=== PATIENT | male | born 1945 | race Caucasian/White ===

== ENCOUNTER 2017-12-08 15:48 | Emergency (ER) | payer OTHER ==
[2017-12-08 16:49] VITALS: BP 153/86
[2017-12-08] MEDS ORDERED: Lidocaine 1% 20 ML MDV INJECT ONE (17:57)
[2017-12-08] MEDS ORDERED: Lidocaine 1% 20 ML MDV ONE (17:58)
[2017-12-08] MEDS ORDERED: Bacitracin Oint 1 GM U/D Packet TOP ONE (18:34)
--- NOTE | 2017-12-08 18:38 | EDM.PDOC ---
ED HPI GENERAL MEDICAL PROBLEM - General Chief Complaint: Laceration Stated Complaint: LEFT THUMB Time Seen by Provider: 12/08/17 16:46 Source of Information: Reports: Patient History Limitations: Reports: No Limitations - History of Present Illness INITIAL COMMENTS - FREE TEXT/NARRATIVE: This gentleman was at home doing some woodworking when somehow he managed to stick his left thumb into the table saw. This happened just shortly well prior to arrival. He said he was a lot of bleeding and he has trouble controlling the bleeding. There were no other injuries Left 1-Thumb Pain Score (Numeric/FACES): 8 - Related Data Allergies Allergy/AdvReac Type Severity Reaction Status Date / Time No Known Allergies Allergy Verified 12/08/17 17:09 Home Meds: Home Meds Insulin Glarg,Human.Rec.Analog [Lantus Solostar] 68 units SQ BEDTIME 12/08/17 [ History] Lisinopril 10 mg PO DAILY 12/08/17 [History] metFORMIN [Glucophage XR] 500 mg PO BIDMEALS 12/08/17 [History] Past Medical History HEENT History: Reports: Cataract, Hard of Hearing, Impaired Vision Cardiovascular History: Reports: High Cholesterol, Hypertension, [place] Musculoskeletal History: Reports: Fracture, Osteoarthritis Other Musculoskeletal History: fx clavicle foot fx Neurological History: Reports: Concussion Psychiatric History: Reports: Depression Endocrine/Metabolic History: Reports: Diabetes, Type II, IDDM, Obesity/BMI 30+ Hematologic History: Reports: Blood Transfusion(s) Dermatologic History: Reports: Other (See Below) Other Dermatologic History: Skin issue from agent orange - Infectious Disease History Infectious Disease History: Reports: Chicken Pox, Measles, Mumps, Shingles - Past Surgical History Cardiovascular Surgical History: Reports: Coronary Artery Stent GI Surgical History: Reports: Colonoscopy Social & Family History - Tobacco Use Smoking Status *Q: Never Smoker - Recreational Drug Use Recreational Drug Use: No ED ROS GENERAL - Review of Systems Review Of Systems: ROS reveals no pertinent complaints other than HPI. ED EXAM, SKIN/RASH Exam: See Below Exam Limited By: No Limitations General Appearance: Alert, WD/WN Extremities: Other (There is a large irregular laceration to the pad of the left thumb it goes sort of diagonally across the thumb and there appears to be some tissue missing. There is no visible bone. He is able to move the DIP joint normally.) Course - Vital Signs Last Recorded V/S: Last Vital Signs Temp 35.0 C L 12/08/17 17:07 Pulse 93 12/08/17 17:07 Resp 16 12/08/17 17:07 BP 153/86 H 12/08/17 17:07 Pulse Ox 93 L 12/08/17 17:07 - Orders/Labs/Meds Meds: Medications Discontinued Medications Generic Name Dose Route Start Last Admin Trade Name Chance PRN Reason Stop Dose Admin Lidocaine HCl 20 ml 12/08/17 17:57 Xylocaine 1% INJECT 12/08/17 17:58 ONETIME ONE Lidocaine HCl Confirm 12/08/17 17:58 12/08/17 18:11 Xylocaine 1% Administered 12/08/17 17:59 Not Given Dose 20 ml .ROUTE .STK-MED ONE - Re-Assessments/Exams Free Text/Narrative Re-Assessment/Exam: 12/08/17 18:37 Dr. Otero was called and he has come to the emergency department to repair the wound patient will follow-up with him rechecking to see if the patient is up -to-date on tetanus or not Departure - Departure Time of Disposition: 18:37 Disposition: Home, Self-Care 01 Condition: Fair Clinical Impression: Thumb laceration - Discharge Information Referrals: PCP,None [Primary Care Provider] - Additional Instructions: See the wound care instructions and follow-up plans as per Dr. Otero
--- NOTE | 2017-12-11 12:37 | OR ---
DATE OF PROCEDURE: 12/08/2017 PROCEDURE: Complex repair of thumb laceration/traumatic injury. PREOPERATIVE DIAGNOSIS: Significant degloving-type traumatic injury to left thumb due to table saw injury. POSTOPERATIVE DIAGNOSIS: Significant degloving-type traumatic injury to left thumb due to table saw injury. COMPLICATION: None. VENDING MECHANIC: None. ANESTHESIA: Lidocaine 1% without epinephrine mixed with Marcaine. INDICATION: This is a pleasant 72-year-old gentleman who placed his left thumb inadvertently in a table saw resulting in a significant injury. RISKS: Risks, benefits, alternatives, and limitations including, but not limited to, infection, bleeding, injury to structures requiring revisional surgery, scar formation, the possibility of infection including sepsis, possibility of skin grafting or other revisional surgery at a later date. FINDINGS: Significant tissue loss with respect to the Kerf area of the blade. PROCEDURE IN DETAIL: The patient was placed in the supine position. The left thumb was prepped and draped with Betadine. On exam, there did not appear to be any bone injury. I just saw a tear. The wound was thoroughly irrigated. The laceration almost circumnavigated the entire thumb. This was in the area around the distal phalangeal joint. The muscular tissues were then reapproximated with 3-0 and 4-0 Vicryl reapproximating the "pulp" of the thumb itself. Once these layers were reapproximated, the subcutaneous tissues were then also reapproximated with multiple layers of 4-0 Vicryl suture. Further subcutaneous tissues were then reapproximated on the shorter arm of the stellate- type injury also using 3-0 and 4-0 Vicryl combinations. The skin was then reapproximated first at the stellate point with a combination of 3-0 and 4- 0 Prolene sutures. There was significant loss of the tissue thus preventing actual connectivity to the skin, just rather an approximation. This was then sutured in a combination of running and interrupted sutures. Bacitracin and dressings were applied. The patient tolerated the procedure well. He is to return to clinic next week. Of note, the patient was instructed on signs, symptoms, and complications including, but not limited to, infection and bleeding. He is to return to the emergency room if any of the occur. The patient tolerated the procedure well. Otto Otero MD /[id number]
== END 2017-12-08 19:03 | disposition home or self-care (01) ==
LOC: JP.ED 15:48
DX: S61.012A Laceration without foreign body of left thumb without damage to nail, initial encounter (principal); I10 Essential (primary) hypertension; E11.9 Type 2 diabetes mellitus without complications; Z79.4 Long term (current) use of insulin; W27.0XXA Contact with workbench tool, initial encounter
CPT/HCPCS: 99283

== ENCOUNTER 2020-06-09 15:47 | Emergency (ER) | payer OTHER ==
[2020-06-09] MEDS ORDERED: Magnesium Hydroxide 400 MG/5 ML Susp 30 ML Cup PO ONE (16:18)
[2020-06-09] MEDS ORDERED: Aluminum Hydroxide/Magnesium Hydroxide/Simethicone Susp 30 ML Cup PO ONE (16:40)
--- NOTE | 2020-06-09 16:48 | EDM.PDOC ---
ED HPI GENERAL MEDICAL PROBLEM - General Chief Complaint: Chest Pain Stated Complaint: CHEST PAINS Time Seen by Provider: 06/09/20 16:10 Source of Information: Reports: Patient History Limitations: Reports: No Limitations - History of Present Illness INITIAL COMMENTS - FREE TEXT/NARRATIVE: 74-year-old male with intermittent chest burning over the past several days, unsure if it is indigestion or some other problem. He has a remote history of a stent placement over 20 years ago. Symptoms are not related to activity, do not cause any other symptoms such as shortness of breath or diaphoresis. No nausea or vomiting. Symptoms are substernal, mild burning sensation, but he has not taken any antacids or other treatment. [facility]. On arrival he had a slight burning sensation substernal without radiation, no shortness of breath or other symptoms. No fevers or chills, denies cough. Onset: Gradual Duration: Day(s): (2 to 3 days of symptoms) Location: Reports: Chest (Substernal) Quality: Reports: Burning (Mild burning sensation) Improves with: Reports: None Worsens with: Reports: None Associated Symptoms: Reports: No Other Symptoms Chest Pain Score (Numeric/FACES): 5 - Related Data Allergies Allergy/AdvReac Type Severity Reaction Status Date / Time No Known Allergies Allergy Verified 06/09/20 16:03 Home Meds: Home Meds Insulin Glarg,Human.Rec.Analog [Lantus Solostar] 75 units SQ BEDTIME 12/08/17 [History] metFORMIN [Glucophage XR] 1,000 mg PO BIDMEALS 12/08/17 [History] Gabapentin [Neurontin] 300 mg PO BEDTIME 06/09/20 [History] Omeprazole 40 mg PO DAILY 06/09/20 [History] Valsartan 160 mg PO DAILY 06/09/20 [History] atenoloL [Atenolol] 100 mg PO DAILY 06/09/20 [History] atorvaSTATin Calcium [Atorvastatin Calcium] 40 mg PO BEDTIME 06/09/20 [History] glipiZIDE [Glucotrol] 20 mg PO BID 06/09/20 [History] hydroCHLOROthiazide [Hydrochlorothiazide] 25 mg PO DAILY 06/09/20 [History] Past Medical History HEENT History: Reports: Cataract, Hard of Hearing, Impaired Vision Cardiovascular History: Reports: High Cholesterol, Hypertension, [place] Respiratory History: Reports: None Musculoskeletal History: Reports: Fracture, Osteoarthritis Other Musculoskeletal History: fx clavicle foot fx Neurological History: Reports: Concussion Psychiatric History: Reports: Depression Endocrine/Metabolic History: Reports: Diabetes, Type II, IDDM, Obesity/BMI 30+ Hematologic History: Reports: Blood Transfusion(s) Dermatologic History: Reports: Other (See Below) Other Dermatologic History: Skin issue from agent orange - Infectious Disease History Infectious Disease History: Reports: Chicken Pox, Measles, Mumps, Shingles - Past Surgical History HEENT Surgical History: Reports: Cataract Surgery Cardiovascular Surgical History: Reports: Coronary Artery Stent GI Surgical History: Reports: Colonoscopy Other GI Surgeries/Procedures: Abdomenal surgery to remove schrapnel Social & Family History - Tobacco Use Tobacco Use Status *Q: Former Tobacco User Used Tobacco, but Quit: Yes Month/Year Tobacco Last Used: 15 years ago - Caffeine Use Caffeine Use: Reports: Coffee - Recreational Drug Use Recreational Drug Use: No ED ROS GENERAL - Review of Systems Review Of Systems: See Below Constitutional: Denies: Fever, Chills HEENT: Reports: No Symptoms Respiratory: Denies: Shortness of Breath, Cough Cardiovascular: Reports: Chest Pain, Edema (Patient has chronic and recurring lower extremity edema, especially on the left side. He is interested in getting some as needed diuretics). Denies: Palpitations Endocrine: Denies: Fatigue GI/Abdominal: Denies: Abdominal Pain, Nausea, Vomiting Musculoskeletal: Reports: Back Pain, Other (Chronic knee pain) Skin: Reports: No Symptoms Neurological: Reports: No Symptoms Psychiatric: Reports: No Symptoms Free Text/Narrative/Comment: Admits to weight gain over the past few months. 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 ED EXAM, GENERAL - Physical Exam Exam: See Below Exam Limited By: No Limitations General Appearance: Alert, No Apparent Distress Head: Atraumatic Respiratory/Chest: No Respiratory Distress, Lungs Clear Cardiovascular: Regular Rate, Rhythm. No: Extra Beats GI/Abdominal: Soft, Non-Tender Extremities: Pedal Edema (1+ pitting edema left lower extremity, trace on the right. This is a chronic and recurring problem) Neurological: Alert, Oriented Psychiatric: Normal Affect, Normal Mood Skin Exam: Warm, Dry #1 Interpretation EKG Date: 06/09/20 Rhythm: NSR Course - Vital Signs Last Recorded V/S: Last Vital Signs Temp 97.5 F 06/09/20 15:59 Pulse 63 06/09/20 18:11 Resp 14 06/09/20 18:11 BP 130/65 06/09/20 18:11 Pulse Ox 94 L 06/09/20 18:11 - Orders/Labs/Meds Orders: Active Orders 24 hr Category Date Time Status CORONAVIRUS COVID-19, DEBBI Stat Lab 06/09/20 17:53 Received EKG 12 Lead [EK] Routine Ther 06/09/20 16:18 Ordered Labs: Laboratory Tests 06/09/20 06/09/20 Range/Units 16:30 16:30 WBC 6.3 (4.5-11.0) K/uL RBC 4.77 (4.30-5.90) M/uL Hgb 14.4 (12.0-15.0) g/dL Hct 42.5 (40.0-54.0) % MCV 89 (80-98) fL MCH 30 (27-31) pg MCHC 34 (32-36) % Plt Count 198 (150-400) K/uL Neut % (Auto) 46 (36-66) % Lymph % (Auto) 38 (24-44) % Stanley % (Auto) 15 H (2-6) % Eos % (Auto) 2 (2-4) % Baso % (Auto) 1 (0-1) % Sodium 140 (140-148) mmol/L Potassium 4.3 (3.6-5.2) mmol/L Chloride 103 (100-108) mmol/L Carbon Dioxide 27 (21-32) mmol/L Anion Gap 9.9 (5.0-14.0) mmol/L BUN 27 H (7-18) mg/dL Creatinine 1.3 (0.8-1.3) mg/dL Est Cr Clr Drug Dosing 51.36 mL/min Estimated GFR (MDRD) 54 L (>60) Glucose 71 L (74-106) mg/dL Calcium 9.3 (8.5-10.1) mg/dL Troponin I < 0.017 (0.000-0.056) ng/mL Meds: Medications Discontinued Medications Generic Name Dose Route Start Last Admin Trade Name Freq PRN Reason Stop Dose Admin Al Hydroxide/Mg Hydroxide 30 ml 06/09/20 16:40 06/09/20 16:50 Mag-Al Plus PO 06/09/20 16:41 30 ml ONETIME ONE Administration - Re-Assessments/Exams Free Text/Narrative Re-Assessment/Exam: 06/09/20 17:55 Initial EKG was normal. He had already taken aspirin at home. CBC, BMP, troponin were obtained and patient was given 30 cc of Maalox. Symptoms resolved almost immediately after the Maalox. He was kept on cardiac monitoring until labs returned. Troponin was 0, he also was given a coronavirus test which will be back in 48 hours. 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 I encouraged him to go back up to 40 mg of omeprazole daily, gave him 30 20 mg Lasix to use as needed and he will return in the next 2 to 3 days if not improving satisfactorily or sooner if worsening. If he develops chest pain or burning persistently with activity he needs to return right away. I also recommended a stress test in the near future, he will contact the [facility] to set this up. CBC was normal, BMP was reassuring with normal kidney function and electrolytes. Glucose was 71. Departure - Departure Time of Disposition: 19:13 Disposition: Home, Self-Care 01 Clinical Impression: Atypical chest pain, Peripheral edema Acid reflux Qualifiers: Esophagitis presence: esophagitis presence not specified Qualified Code(s): K21.9 - Gastro-esophageal reflux disease without esophagitis - Discharge Information Instructions: Heartburn, [id number] Referrals: PCP,None [Primary Care Provider] - Forms: ED Department Discharge Care Plan Goals: Increase your omeprazole back to 2 pills daily for the next 7 to 10 days, and use 1 pill of diuretic in the morning as needed for peripheral edema. Return if chest pain recurs and is persistent, or is related to increase activity. [facility] near future to set up stress testing before any further surgeries. Sepsis Event Note (ED) - Evaluation Sepsis Screening Result: No Definite Risk - My Orders Last 24 Hours: My Active Orders 06/09/20 16:18 EKG 12 Lead [EK] Routine 06/09/20 17:53 CORONAVIRUS COVID-19, DEBBI Stat - Assessment/Plan Last 24 Hours: My Active Orders 06/09/20 16:18 EKG 12 Lead [EK] Routine 06/09/20 17:53 CORONAVIRUS COVID-19, DEBBI Stat
[2020-06-09 18:11] VITALS: BP 130/65; PULSE 63
== END 2020-06-09 19:13 | disposition home or self-care (01) ==
LOC: JP.ED 15:47
DX: K21.9 Gastro-esophageal reflux disease without esophagitis (principal); R60.0 Localized edema; I10 Essential (primary) hypertension; E78.00 Pure hypercholesterolemia, unspecified; I25.2 Old myocardial infarction; E11.9 Type 2 diabetes mellitus without complications; E66.9 Obesity, unspecified; Z68.34 Body mass index [BMI] 34.0-34.9, adult; Z87.891 Personal history of nicotine dependence; Z79.4 Long term (current) use of insulin; Z79.899 Other long term (current) drug therapy; Z20.828 Contact with and (suspected) exposure to other viral communicable diseases
CPT/HCPCS: 36415; 80048; 84484; 85025; 87635; 93005; 99285; A9270; 93010; 99283; U0002

== ENCOUNTER 2023-06-24 14:27 | Emergency (ER) | payer OTHER ==
[2023-06-24 14:49] VITALS: BP 146/63; PULSE 63
== END 2023-06-24 16:16 | disposition left against medical advice (07) ==
LOC: JP.ED 14:27
DX: Z53.21 Procedure and treatment not carried out due to patient leaving prior to being seen by health care provider (principal)

== ENCOUNTER 2025-06-26 10:56 | Emergency (ER) | payer OTHER ==
[2025-06-26 11:09] VITALS: BP 133/70; PULSE 59
== END 2025-06-26 12:28 | disposition home or self-care (01) ==
LOC: JP.ED 10:56
DX: J40 Bronchitis, not specified as acute or chronic (principal); I10 Essential (primary) hypertension; I25.10 Atherosclerotic heart disease of native coronary artery without angina pectoris; E11.9 Type 2 diabetes mellitus without complications; E66.9 Obesity, unspecified; E78.00 Pure hypercholesterolemia, unspecified; K21.9 Gastro-esophageal reflux disease without esophagitis; M19.90 Unspecified osteoarthritis, unspecified site; Z79.4 Long term (current) use of insulin; Z79.899 Other long term (current) drug therapy; Z87.891 Personal history of nicotine dependence; Z68.31 Body mass index [BMI] 31.0-31.9, adult
CPT/HCPCS: 71046; 71046-26; 99283